=== PATIENT | female | born 1945 | race Hispanic/Latino ===

== ENCOUNTER 2024-10-07 17:10 | Emergency (ER) | payer OTHER, MEDICARE ==
[~2024-10-07] VITALS: Ht 157.5 cm; Wt 59.0 kg
[~2024-10-07 17:10] MED LIST: AEC81 PO; CALC-190 PO; CARV6.25 PO; DONE10TA43 PO; EZET10TA48 PO; FENO160T16 PO; FISH OIL OMEGA1 EACH PO; GLIP10TA16 PO; LINA5TAB PO; LISI1TAB51 PO; MECL-302 PO; METF-444 PO; PRAV40TA3 PO; VITA1CAP17 PO
[2024-10-07] MEDS ORDERED: AMOX500C2 PO (17:43)
--- NOTE | 2024-10-07 17:47 | ERN ---
ED Note History of Present Illness Stated Complaint: EARACHE Time Seen by MD: 17:32 Time Seen by Midlevel: 17:35 Dictation: Ms. Gomez is a 78-year-old female with history of hypertension, hyperlipidemia, and type 2 diabetes who presented to the emergency department this evening for evaluation of ear pain. States last night she developed pain to the right ear as well as slight loss of hearing. She denies having fever, chills, shortness of breath, cough, nasal drainage, sore throat chest pain, palpitations, edema, abdominal pain, nausea, vomiting, diarrhea, dysuria, headache or dizziness. PCP: Dr. Ema Huntley Allergies: Coded Allergies: sitagliptin (Unverified Allergy, Unknown, NAUSEA, 04/19/14) Emergency Care AIR POLLUTION AUDITOR: None Home Meds Active Scripts Amoxicillin (Amoxicillin) 500 Mg Capsule, 1 CAP PO TID for 10 Days, #30 CAP 0 Refills Prov:DIANNE ESPARZA WATER QUALITY ASSISTANT 10/07/24 Reported Medications Vitamin B Complex & Vit C No.3 (B Complex with Vitamin C) 1 Each Capsule, 1 EACH PO DAILYBKFST, CAP 07/30/21 Linagliptin (Tradjenta) 5 Mg Tablet, 5 MG PO DAILY, TAB 07/30/21 Carvedilol (Carvedilol) 6.25 Mg Tablet, 6.25 MG PO BID, TAB 07/30/21 Donepezil HCl (Donepezil HCl) 10 Mg Tablet, 10 MG PO DAILY, TAB 07/30/21 Ezetimibe (Ezetimibe) 10 Mg Tablet, 10 MG PO DAILYBKFST, TAB 07/30/21 Lisinopril/Hydrochlorothiazide (Lisinopril-Hctz 20-12.5 mg Tab) 1 Each Tablet, 1 EACH PO DAILY, TAB 07/30/21 Aspirin (ASPIRIN 81 MG ECTAB) 81 Mg Ectab, 81 MG PO DAILY, TAB.EC 07/30/21 Gipsy-3/Dha/Epa/Fish Oil (Fish Oil Gipsy-3 Softgel) 1 Each Capsule.dr, 1 EACH PO TID, CAP 04/19/14 Calcium Carbonate/Vitamin D3 (Calcium + Vitamin D Tablet) 1 Each Tablet, 600 MG PO AM, TAB 04/19/14 Pravastatin Sodium (Pravastatin Sodium) 40 Mg Tablet, 40 MG PO AM, TAB 04/19/14 Meclizine HCl (Meclizine HCl) 25 Mg Tablet, 25 MG PO TID, TAB 04/19/14 Fenofibrate (Fenofibrate) 160 Mg Tablet, 160 MG PO AM, TAB 04/19/14 Glipizide (Glipizide) 10 Mg Tablet, 20 MG PO BIDAC, TAB 04/19/14 Metformin HCl (Metformin HCl) 500 Mg Tablet, 1000 MG PO BIDAC, TAB 04/19/14 Past Medical History Past Medical History: Dementia, Diabetes-Type II, High Cholesterol, Hypertension Surgical History: None, Unknown Social History: Negative, Lives with family History: Not Applicable Review of System Dictation REVIEW OF SYSTEMS: CONSTITUTIONAL: Patient denies fevers, chills, sweats and weight changes. EYES: Patient denies any visual symptoms. EARS, NOSE, AND THROAT: No symptoms of rhinitis or sore throat. Reports slight decrease in hearing in the right ear. Reports pain and drainage from right ear onset last night. CARDIOVASCULAR: Patient denies chest pains, palpitations, orthopnea and paroxysmal nocturnal dyspnea. RESPIRATORY: No dyspnea on exertion, no wheezing or cough. GI: No nausea, vomiting, diarrhea, constipation, abdominal pain, hematochezia or melena. : No urinary hesitancy or dribbling. No nocturia or urinary frequency. No abnormal urethral discharge. MUSCULOSKELETAL: No myalgias or arthralgias. NEUROLOGIC: No chronic headaches, no seizures. Patient denies numbness, tingling or weakness. PSYCHIATRIC: Patient denies problems with mood disturbance. No problems with anxiety. ENDOCRINE: No excessive urination or excessive thirst. DERMATOLOGIC: Patient denies any rashes or skin changes. Physical Exam Dictation Vital signs: Reviewed. Constitutional: No acute distress. Non-toxic appearing. Head/Face: Normocephalic, atraumatic. Eyes: Periorbital areas with no swelling, redness, or edema. Lids and lashes are normal. Conjunctival injection is absent. Sclera anicteric. Pupils equal, round, reactive to light. ENT: Pinnas intact and no signs of trauma or erythema. Left ear canal with sma ll amount soft cerumen; TM pearly padilla. Right ear canal with erythema and dried blood TM perforation. States slight decreased hearing in right ear. No nasal discharge or bleeding noted. Oropharynx with no exudate, redness, swelling, masses, exudates, or evidence of obstruction. Uvula midline. Mucous membranes moist. Neck: Trachea midline, no masses palpated, and no cervical lymphadenopathy. No swelling. Supple, full range of motion. Chest/Axilla: No tenderness, no crepitus, no paradoxical movement, no retractions. Cardiovascular: Regular rate, regular rhythm, no murmur, no gallops. Symmetric pulses. No peripheral edema. Respiratory: Respirations even and unlabored. Lung sounds clear; no wheezes, rales or rhonchi. Gastrointestinal: Inspection is normal. No distention is appreciated. Bowel sounds are normal. No mass or organomegaly . There is no tenderness. No rebound. No rigidity. No voluntary or involuntary guarding. No Booth's sign. Neurological: Normal speech, gross motor function intact, gross sensory function intact. No focal weakness/Paresthesia. Musculoskeletal/Extremities: All extremities have full range of motion, no pain or tenderness on palpation. Symmetric pulses. Integumentary: Intact. Skin is normal color, warm and dry. Cap refill less than 3 seconds. ED Course ED Course Orders Procedure Category Date Status Time Ibuprofen 200 Mg PHA 10/07/24 Complete Tablet (Motrin) 18:00 Amoxicillin 500mg Cap PHA 10/07/24 Complete (Amoxicillin 500mg 18:00 Current Medications Medications (Trade) Dose Ordered Sig/Jennifer Route PRN Reason Start Time Stop Time Status Last Admin Dose Admin Amoxicillin (Amoxicillin 500mg Cap) 500 mg ONCE ONCE PO 10/07/24 18:00 10/07/24 18:01 DC Ibuprofen (moTRIN) 400 mg ONCE ONCE PO 10/07/24 18:00 10/07/24 18:01 DC Uneventful ED course. Noted slight decrease hearing in the right ear with pain. Noted dried blood in ear canal with erythema as well as rupture of TM. She received initial dose amoxicillin as well as p.o. ibuprofen. Findings were discussed with patient and family and all questions were answered. Medical Decision Making MDM MDM: Differential diagnosis: Otitis media, otitis externa, seasonal allergies Rationale: Tests considered and ordered secondary to shared decision making include: Examination Previous outside records reviewed: Old ER visits. Risk of complication and/or morbidity or mortality of patient management: None Medications-Per medication reconciliation Need for hospitalization: Patient does not meet criteria for hospitalization. Need for emergency major/minor surgery: No There are no social concerns with this patient. Prescription drug management: Amoxicillin Prescriptions will include symptomatic care Patient's prior external medical records from other ER visits were reviewed by me as indicated. Prior testing and results from previous visits were reviewed. Prior tests were taken into account with medical decision making and resource utilization, independent historian/historians were used to obtain complete medical history. I independently interpreted the test that were performed, results were reviewed by me and considered findings on radiology if ordered. Medical management and examination interpretation discussions were had by me with other qualified healthcare professionals as indicated for the patient's care. DX & DISP Disposition: Discharge Departure Impression: Primary Impression: Otitis media, acute with perforation of eardrum Additional Impression: Earache on right Condition: Stable Scripts Amoxicillin (Amoxicillin) 500 Mg Capsule 1 CAP PO TID for 10 Days, #30 CAP 0 Refills Prov: DIANNE ESPARZA NP 10/07/24 Additional Instructions: Keep ear clean and dry. Do not insert anything into ears; NO Q-TIPS. OTC Tylenol or ibuprofen as needed for discomfort. Continue antibiotic with amoxicillin 3 times a day for 10 days. Follow up with your primary care physician early next week. If symptoms persist may require referral to ENT. Return to the emergency department for any worsening of symptoms or concerns. Referrals: UGO HUNTLEY DO (PCP) Time of Disposition: 17:44 DIANNE ESPARZA NP Oct 07, 2024 17:47
[2024-10-07] MEDS: ibuPROFEN 200 MG TAB PO ONE (19:39)
[2024-10-07] MEDS: AMOXICILLIN 500 MG CAPSULE PO ONE (19:39)
[2024-10-07 21:08] VITALS: BP 161/85; PULSE 69; RESP 20; TEMP 97.9; O2SAT 98
== END 2024-10-07 21:09 | disposition home or self-care (01) ==
LOC: EDH 17:10
DX: H66.91 Otitis media, unspecified, right ear (principal); H92.01 Otalgia, right ear; F03.90 Unspecified dementia, unspecified severity, without behavioral disturbance, psychotic disturbance, mood disturbance, and anxiety; E11.9 Type 2 diabetes mellitus without complications; E78.00 Pure hypercholesterolemia, unspecified; I10 Essential (primary) hypertension; Z79.82 Long term (current) use of aspirin; Z79.84 Long term (current) use of oral hypoglycemic drugs; Z79.899 Other long term (current) drug therapy
CPT/HCPCS: 99283